=== PATIENT | male | born 1990 | race Caucasian/White ===

== ENCOUNTER 2021-05-20 09:56 | Emergency (ER) | payer OTHER ==
[2021-05-20 10:57] LABS: HEMOGLOBIN 16.5 gm/dl (14.0-17.5); RED BLOOD COUNT 5.23 M/UL (4.20-5.50); WHITE BLOOD COUNT 11.3 K/UL (4.5-11.0)
[2021-05-20 11:17] LABS: BUN/CREATININE RATIO 14 (0-10)
== END 2021-05-20 13:40 | disposition home or self-care (01) ==
LOC: ER1 09:56 → EDBD 09:56 → ER1 13:40
PROVIDERS: Student in an Organized Health Care Education/Training Program
DX: R55 Syncope and collapse (principal); S01.01XA Laceration without foreign body of scalp, initial encounter; W19.XXXA Unspecified fall, initial encounter
CPT/HCPCS: 70450; 71045; 72125; 80053; 80156; 82550; 82553; 83874; 84484; 85025; 93005; 99284